=== PATIENT | male | born 1980 | race Caucasian/White ===

== ENCOUNTER 2016-11-01 20:36 | Emergency (ER) | payer OTHER ==
[~2016-11-01] VITALS: Ht 175.3 cm; Wt 61.3 kg
[2016-11-01] MEDS ORDERED: ONDANSETRON 2MG/ML, 2ML ONE (21:30)
[2016-11-01] MEDS ORDERED: KETOROLAC 30 MG/1 ML IVPush ONE (21:30)
[2016-11-01] MEDS ORDERED: ONDANSETRON 2MG/ML, 2ML IVPush ONE (21:30)
[2016-11-01] MEDS ORDERED: SODIUM CHLORIDE 0.9% 1,000ML IVBOLUS ONE (21:30)
[2016-11-01] MEDS ORDERED: KETOROLAC 30 MG/1 ML ONE (21:30)
[2016-11-01 21:51] LABS: DAU SCREEN DISCLAIMER
[2016-11-01 21:55] LABS: WHITE BLOOD COUNT 16.5 x10^3/uL (3.4-10)
[2016-11-01 22:06] LABS: ASPARTATE AMINO TRANSFERASE 12 U/L (15-37); BLOOD UREA NITROGEN 16 mg/dL (7-18)
[2016-11-02 02:23] VITALS: BP 125/85
== END 2016-11-02 02:32 | disposition home or self-care (01) ==
LOC: ED 21:10
DX: K40.91 Unilateral inguinal hernia, without obstruction or gangrene, recurrent (principal); Z72.9 Problem related to lifestyle, unspecified; F15.10 Other stimulant abuse, uncomplicated; Z87.442 Personal history of urinary calculi
CPT/HCPCS: 36415; 76770; 76870; 80053; 80307; 81003; 83690; 85025; 93005; 96361; 96374; 96375; 99285; J1885; J2405; J7030

== ENCOUNTER 2019-02-22 19:34 | Emergency (ER) | payer OTHER ==
[~2019-02-22] VITALS: Ht 175.3 cm; Wt 63.6 kg
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
--- NOTE | 2019-02-22 20:21 | NUR ---
PT. MOVED FROM [id number] TO ED18 PER REQUEST OF RME PROVIDER.
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
[2019-02-22 20:49] VITALS: BP 114/76
--- NOTE | 2019-02-22 20:49 | NUR ---
PA AT BEDSIDE FOR EXAM.
[2019-02-22] MEDS ORDERED: MORPHINE SULFATE 4 MG/ML, 1ML IVPush ONE (21:00)
[2019-02-22] MEDS ORDERED: ONDANSETRON 2MG/ML, 2ML IVPush ONE (21:00)
--- NOTE | 2019-02-22 21:08 | NUR ---
BEDSIDE REPORT GIVEN TO CHARI CHAMBERS. CARE TRANSFERRED.
[2019-02-22] MEDS ORDERED: ONDANSETRON 2MG/ML, 2ML ONE (21:16)
--- NOTE | 2019-02-22 21:16 | NUR ---
ASSUMED CARE OF PT AT THIS TIME
[2019-02-22] MEDS ORDERED: MORPHINE SULFATE 4 MG/ML, 1ML ONE (21:17)
[2019-02-22 22:09] LABS: BASOPHILS # (AUTO) 0.02 x10^3/uL (0-0.1); BASOPHILS % (AUTO) 0 % (0-1); EOSINOPHILS # (AUTO) 0.22 x10^3/uL (0-0.4); EOSINOPHILS % (AUTO) 2 % (1-7); LYMPHOCYTES # (AUTO) 1.87 x10^3/uL (1-3.4); LYMPHOCYTES % (AUTO) 16 % (22-44); MD NO; MEAN CORPUSCULAR HEMOGLOBIN 31.6 pg (27.5-34.5); MEAN CORPUSCULAR HGB CONC 33.6 g/dL (33.2-36.2); MEAN CORPUSCULAR VOLUME 93.8 fL (81-97); MEAN PLATELET VOLUME 7.3 fL (7.4-10.4); MONOCYTES # (AUTO) 0.77 x10^3/uL (0.2-0.8); MONOCYTES % (AUTO) 7 % (2-9); NEUTROPHILS # (AUTO) 8.78 x10^3/uL (1.8-6.8); NEUTROPHILS % (AUTO) 75 % (42-75); PLATELET COUNT 279 x10^3/uL (130-400); RED BLOOD COUNT 5.48 x10^6/uL (4.38-5.82); RED CELL DISTRIBUTION WIDTH 12.6 % (9.4-14.8)
[2019-02-22 22:21] LABS: ALANINE AMINOTRANSFERASE 22 U/L (12-78); ALBUMIN 3.8 g/dL (3.4-5.0); ANION GAP 7 mmol/L (5-15); CALCIUM 8.6 mg/dL (8.5-10.1); CHLORIDE 105 mmol/L (98-107); CREATININE 0.77 mg/dL (0.7-1.3)
[2019-02-22 22:23] LABS: ALKALINE PHOSPHATASE 105 U/L (45-117); BILIRUBIN,TOTAL 1.1 mg/dL (0.2-1.0); TOTAL PROTEIN 7.3 g/dL (6.4-8.2)
--- NOTE | 2019-02-22 22:27 | NUR ---
Patient able to keep liquids down but still remains nauseous.
== END 2019-02-22 22:53 ==
LOC: ED 22:46
DX: K40.90 Unilateral inguinal hernia, without obstruction or gangrene, not specified as recurrent (principal); R11.2 Nausea with vomiting, unspecified; R19.7 Diarrhea, unspecified; F12.10 Cannabis abuse, uncomplicated; F17.210 Nicotine dependence, cigarettes, uncomplicated; Z72.9 Problem related to lifestyle, unspecified
CPT/HCPCS: 36415; 80053; 85025; 96374; 96375; 99284; J2270; J2405; 99283